=== PATIENT | female | born 1980 | race Caucasian/White ===

== ENCOUNTER 2021-03-31 15:43 | Emergency (ER) | payer OTHER ==
[~2021-03-31 15:43] MED LIST: ALBUTEROL2.5 MG/3 M INH; BENTYL 20MG TAB20 MG PO; CEFUROXIME500 MG PO; CIPRO HC OTIC S10 ML EARLF; ESTRADIOL1 EAC1 TD; FLAGYL500 MG PO; FLOMAX0.4 MG PO; GLUCOPHAGE500 MG PO; HYDROCODON-ACE1 EAC4 PO; IBUPROFEN600 MG PO; INDOCIN 50 MG C50 MG PO; KEFLEX CAP 500500 MG PO; KLOR-CON 1010 MEQ PO; LASIX20 MG PO; LIPITOR TAB 1010 MG PO; LIPITOR TAB 2020 MG PO; LORTAB 10-3251 EACH PO; MEDROL DOSEPAK 24 MG PO; NEURONTIN 400400 MG PO; NICOTINE PATCH1 EAC1 TOP; NORCO 5-325 TA1 EACH PO; NORCO 7.5-3251 EACH PO; OMNICEF 300 MG300 MG PO; PERCOCET 5-3251 EACH PO; PERCOCET 5/325 T1 EA PO; PREDNISONE20 MG PO; PROTONIX40 MG PO; TORADOL 10 MG T10 MG PO; VALIUM 5 MG TAB5 MG PO; VENTOLIN HFA 66.7 GM INH; ZANAFLEX4 MG PO; ZOFRAN ODT 4 MG4 MG PO; ZOFRAN4 MG PO
[2021-03-31 16:31] LABS: HEMOGLOBIN 13.8 gm/dl (12.3-15.3); RED BLOOD COUNT 3.8 M/UL (4.00-5.10); WHITE BLOOD COUNT 6.1 K/UL (4.5-11.0)
[2021-03-31 16:53] LABS: BUN/CREATININE RATIO 26 (0-10)
[2021-03-31] MEDS ORDERED: KEPPRA1000 MG PO (17:25)
[2021-03-31] MEDS ORDERED: VIBRAMYCIN 100100 MG PO (17:25)
== END 2021-03-31 17:25 | disposition home or self-care (01) ==
LOC: ER1 15:43
PROVIDERS: Emergency Medicine
DX: G40.909 Epilepsy, unspecified, not intractable, without status epilepticus (principal); J18.9 Pneumonia, unspecified organism; E11.9 Type 2 diabetes mellitus without complications; F17.200 Nicotine dependence, unspecified, uncomplicated
CPT/HCPCS: 71045; 80053; 83605; 85025; 93005; 96374; 99284; J1953

== ENCOUNTER 2021-04-21 17:58 | Emergency (ER) | payer OTHER ==
[~2021-04-21 17:58] MED LIST changes: +KEPPRA1000 MG PO; -NEURONTIN 400400 MG PO; +VIBRAMYCIN 100100 MG PO; -ZANAFLEX4 MG PO
[2021-04-21 18:38] LABS: HEMOGLOBIN 15.1 gm/dl (12.3-15.3); RED BLOOD COUNT 4.22 M/UL (4.00-5.10); WHITE BLOOD COUNT 10.6 K/UL (4.5-11.0)
[2021-04-21 18:56] LABS: BUN/CREATININE RATIO 11 (0-10)
[2021-04-21] MEDS ORDERED: SPIRONOLACTONE50 MG PO (23:14)
[2021-05-19] MEDS ORDERED: SPIRONOLACTONE50 MG PO (09:43)
[2021-06-26] MEDS ORDERED: GABAPENTIN800 MG PO (05:36)
[2021-06-26] MEDS ORDERED: ZANAFLEX4 MG PO (05:36)
[2021-06-26] MEDS ORDERED: FUROSEMIDE40 MG PO (09:59)
[2021-06-26] MEDS ORDERED: HYDROCODON-ACE1 EAC4 PO (10:00)
[2021-06-26] MEDS ORDERED: LEVETIRACETAM1000 MG PO (12:24)
[2021-06-26] MEDS ORDERED: PROVENTIL HFA6.7 GM INH (12:27)
== END 2021-04-21 23:25 | disposition home or self-care (01) ==
LOC: ER1 17:58
PROVIDERS: Emergency Medicine; Family Medicine
DX: G40.909 Epilepsy, unspecified, not intractable, without status epilepticus (principal); K74.60 Unspecified cirrhosis of liver; E87.6 Hypokalemia; Z20.822 Contact with and (suspected) exposure to COVID-19; R21 Rash and other nonspecific skin eruption; E11.9 Type 2 diabetes mellitus without complications; F17.200 Nicotine dependence, unspecified, uncomplicated; C64.9 Malignant neoplasm of unspecified kidney, except renal pelvis
CPT/HCPCS: 36600; 71045; 80053; 80307; 81001; 82550; 82553; 82803; 82962; 83605; 83874; 83880; 84484; 84703; 85025; 87040; 93005; 96365; 96375; 99285; J2060; J2270; J2405; J2543; J7030; Q9967; U0002

== ENCOUNTER 2021-05-03 13:07 | Emergency (ER) | payer OTHER ==
[~2021-05-03 13:07] MED LIST changes: +SPIRONOLACTONE50 MG PO
[2021-05-03 13:50] LABS: HEMOGLOBIN 13.5 gm/dl (12.3-15.3); RED BLOOD COUNT 3.68 M/UL (4.00-5.10); WHITE BLOOD COUNT 8.8 K/UL (4.5-11.0)
[2021-05-03 15:58] LABS: BUN/CREATININE RATIO 10 (0-10)
[2021-05-03 16:47] LABS: BODY FLUID SOURCE ASCITES
[2021-05-03 16:48] LABS: MONONUCLEAR CELLS 94 (75-100); POLYMORPHONUCLEAR % 6 (0-25); RBC (AUTOMATED) 1800 (0-100000); WBC (AUTOMATED) 544 (0-500)
[2021-05-19] MEDS ORDERED: SPIRONOLACTONE50 MG PO (09:43)
[2021-06-26] MEDS ORDERED: ZANAFLEX4 MG PO (05:36)
[2021-06-26] MEDS ORDERED: GABAPENTIN800 MG PO (05:36)
[2021-06-26] MEDS ORDERED: FUROSEMIDE40 MG PO (09:59)
[2021-06-26] MEDS ORDERED: HYDROCODON-ACE1 EAC4 PO (10:00)
[2021-06-26] MEDS ORDERED: LEVETIRACETAM1000 MG PO (12:24)
[2021-06-26] MEDS ORDERED: PROVENTIL HFA6.7 GM INH (12:27)
== END 2021-05-03 17:30 | disposition home or self-care (01) ==
LOC: ER1 13:07
PROVIDERS: Physician Assistant
DX: R18.8 Other ascites (principal); E11.9 Type 2 diabetes mellitus without complications; N18.9 Chronic kidney disease, unspecified; F17.210 Nicotine dependence, cigarettes, uncomplicated
CPT/HCPCS: 70450; 71045; 80053; 80185; 81001; 82550; 82553; 83874; 84484; 85025; 85610; 87070; 87086; 87205; 89051; 96374; 96375; 99284; G0480; J1170; J2270; J2405

== ENCOUNTER → 2021-05-04 | Outpatient (CLI) | payer OTHER ==
[~2021-05-04] VITALS: Ht 180.3 cm; Wt 104.3 kg
[~2021-05-04] MED LIST changes: +FUROSEMIDE40 MG PO; +GABAPENTIN800 MG PO; +LEVETIRACETAM1000 MG PO; +PROVENTIL HFA6.7 GM INH; +ZANAFLEX4 MG PO
[2021-05-05 05:08] LABS: HBSAG SCREEN Negative (Negative); HEP B CORE AB, TOT Negative (Negative); HEP C VIRUS AB 7.9 (0.0-0.9)
[2021-05-05 08:13] LABS: ALPHA-1-ANTITRYPSIN, SERUM 204 mg/dL (101-187)
[2021-05-05 15:11] LABS: MITOCHONDRIAL (M2) ANTIBODY <20.0 Units (0.0-20.0)
== END ==
LOC: OPSV 09:45
PROVIDERS: Internal Medicine Gastroenterology
DX: K74.60 Unspecified cirrhosis of liver (principal); R18.8 Other ascites
CPT/HCPCS: 36415; 82103; 82728; 83540; 83550; 85610; 86038; 86704; 86706; 86708; 86803; 87340; 96365; P9047

== ENCOUNTER 2021-05-07 05:29 | Emergency (ER) | payer OTHER ==
[~2021-05-07 05:29] MED LIST changes: -FUROSEMIDE40 MG PO; -GABAPENTIN800 MG PO; -LEVETIRACETAM1000 MG PO; -PROVENTIL HFA6.7 GM INH; -ZANAFLEX4 MG PO
[2021-05-07 06:05] LABS: HEMOGLOBIN 13.6 gm/dl (12.3-15.3); RED BLOOD COUNT 3.8 M/UL (4.00-5.10); WHITE BLOOD COUNT 7.9 K/UL (4.5-11.0)
[2021-05-07 06:28] LABS: BUN/CREATININE RATIO 14 (0-10)
[2021-05-07] MEDS ORDERED: HYDROCODON-ACE1 EAC4 PO (08:51)
[2021-05-19] MEDS ORDERED: SPIRONOLACTONE50 MG PO (09:43)
[2021-06-26] MEDS ORDERED: GABAPENTIN800 MG PO (05:36)
[2021-06-26] MEDS ORDERED: ZANAFLEX4 MG PO (05:36)
[2021-06-26] MEDS ORDERED: FUROSEMIDE40 MG PO (09:59)
[2021-06-26] MEDS ORDERED: HYDROCODON-ACE1 EAC4 PO (10:00)
[2021-06-26] MEDS ORDERED: LEVETIRACETAM1000 MG PO (12:24)
[2021-06-26] MEDS ORDERED: PROVENTIL HFA6.7 GM INH (12:27)
== END 2021-05-07 09:30 | disposition home or self-care (01) ==
LOC: ER1 05:29
PROVIDERS: Emergency Medicine
DX: G89.18 Other acute postprocedural pain (principal); R10.9 Unspecified abdominal pain; R10.817 Generalized abdominal tenderness; E11.9 Type 2 diabetes mellitus without complications; F17.200 Nicotine dependence, unspecified, uncomplicated; Z90.410 Acquired total absence of pancreas
CPT/HCPCS: 80053; 84702; 85025; 85652; 86140; 87040; 96374; 96375; 96376; 99284; J0696; J1170; J2270; J2405; J3370; J7070; Q9967

== ENCOUNTER → 2021-05-08 | Outpatient (CLI) | payer OTHER ==
[~2021-05-08] MED LIST changes: +FUROSEMIDE40 MG PO; +GABAPENTIN800 MG PO; +LEVETIRACETAM1000 MG PO; +PROVENTIL HFA6.7 GM INH; +ZANAFLEX4 MG PO
== END ==
LOC: LAB 11:39
PROVIDERS: Internal Medicine Gastroenterology
DX: K75.81 Nonalcoholic steatohepatitis (NASH) (principal); R94.5 Abnormal results of liver function studies
CPT/HCPCS: 36415; 81256

== ENCOUNTER → 2021-05-13 | Outpatient (CLI) | payer OTHER ==
[~2021-05-13] VITALS: Ht 180.3 cm; Wt 104.3 kg
[2021-05-13 11:28] LABS: BUN/CREATININE RATIO 8 (0-10)
[2021-05-14 15:10] LABS: LIVER-KIDNEY MICROSOMAL AB 1.4 Units (0.0-20.0)
[2021-05-14 20:12] LABS: HEPATITIS C QUANTITATION HCV Not Detected IU/mL (.)
== END ==
LOC: OPSV 10:00
PROVIDERS: Internal Medicine Gastroenterology
DX: K75.81 Nonalcoholic steatohepatitis (NASH) (principal); K74.60 Unspecified cirrhosis of liver
CPT/HCPCS: 36415; 80048; 82784; 83516; 86376; 87521; 87522

== ENCOUNTER → 2021-05-19 | Day surgery (SDC) | payer OTHER ==
[2021-05-19 10:08] LABS: BUN/CREATININE RATIO 12 (0-10)
== END | disposition home or self-care (01) ==
LOC: OR 06:50
PROVIDERS: Internal Medicine Gastroenterology
DX: K76.6 Portal hypertension (principal); K31.89 Other diseases of stomach and duodenum; K75.81 Nonalcoholic steatohepatitis (NASH); K74.60 Unspecified cirrhosis of liver; E11.9 Type 2 diabetes mellitus without complications; Z79.84 Long term (current) use of oral hypoglycemic drugs; E66.8 Other obesity; K52.9 Noninfective gastroenteritis and colitis, unspecified; B18.1 Chronic viral hepatitis B without delta-agent; Z68.32 Body mass index [BMI] 32.0-32.9, adult; Z20.822 Contact with and (suspected) exposure to COVID-19; K21.9 Gastro-esophageal reflux disease without esophagitis; F17.210 Nicotine dependence, cigarettes, uncomplicated
CPT/HCPCS: 36415; 80048; 82962; G0480; J2704; J7040

== ENCOUNTER 2021-06-18 17:56 | Emergency (ER) | payer OTHER ==
[~2021-06-18 17:56] MED LIST changes: -FUROSEMIDE40 MG PO; -GABAPENTIN800 MG PO; -LEVETIRACETAM1000 MG PO; +NEURONTIN 100100 MG PO; -PROVENTIL HFA6.7 GM INH
== END 2021-06-18 19:14 | disposition left against medical advice (07) ==
LOC: ER1 17:56
DX: Z53.21 Procedure and treatment not carried out due to patient leaving prior to being seen by health care provider (principal)

== ENCOUNTER 2021-06-19 08:21 | Emergency (ER) | payer OTHER ==
[2021-06-19 08:52] LABS: HEMOGLOBIN 13.6 gm/dl (12.3-15.3); RED BLOOD COUNT 3.68 M/UL (4.00-5.10); WHITE BLOOD COUNT 6.6 K/UL (4.5-11.0)
[2021-06-19 09:33] LABS: BUN/CREATININE RATIO 23 (0-10)
== END 2021-06-19 13:22 | disposition home or self-care (01) ==
LOC: ER1 08:21
PROVIDERS: Emergency Medicine
DX: G40.909 Epilepsy, unspecified, not intractable, without status epilepticus (principal); K74.60 Unspecified cirrhosis of liver; F17.210 Nicotine dependence, cigarettes, uncomplicated; E11.9 Type 2 diabetes mellitus without complications; Z85.528 Personal history of other malignant neoplasm of kidney
CPT/HCPCS: 70450; 71045; 80053; 83605; 83690; 83880; 85025; 93005; 96374; 96375; 99285; G0480; J1885; J2270; J2405; Q9967

== ENCOUNTER 2021-08-04 15:13 | Emergency (ER) | payer OTHER ==
[~2021-08-04 15:13] MED LIST changes: +FUROSEMIDE40 MG PO; +GABAPENTIN800 MG PO; +LEVETIRACETAM1000 MG PO; -NEURONTIN 100100 MG PO; +PROVENTIL HFA6.7 GM INH
[2021-08-04 16:36] LABS: RED BLOOD COUNT 2.31 M/UL (4.00-5.10); WHITE BLOOD COUNT 10.6 K/UL (4.5-11.0)
[2021-08-04 20:31] LABS: BODY FLUID SOURCE PERITONEAL
[2021-08-04 20:32] LABS: MONONUCLEAR CELLS 69.5 (75-100); POLYMORPHONUCLEAR % 30.5 (0-25); RBC (AUTOMATED) 2900 (0-100000); WBC (AUTOMATED) 210 (0-500)
[2021-08-04 20:40] LABS: LDH, BODY FLUID 44 U/L
[2021-08-04] MEDS ORDERED: OMNICEF 300 MG300 MG PO (22:18)
[2021-08-04] MEDS ORDERED: OXYCODONE HCL10 MG PO (22:24)
== END 2021-08-04 23:09 | disposition home or self-care (01) ==
LOC: ER1 15:13
PROVIDERS: Physician Assistant; Student in an Organized Health Care Education/Training Program
DX: K72.10 Chronic hepatic failure without coma (principal); R18.8 Other ascites; E11.9 Type 2 diabetes mellitus without complications; Z88.1 Allergy status to other antibiotic agents
CPT/HCPCS: 73630; 80053; 82550; 82553; 83605; 83615; 83874; 84484; 85025; 85610; 87040; 87070; 87205; 89051; 96374; 96375; 96376; 99284; J0696; J1170

== ENCOUNTER 2021-08-07 08:35 | Emergency (ER) | payer OTHER ==
[~2021-08-07 08:35] MED LIST changes: +OXYCODONE HCL10 MG PO
[2021-08-07 09:25] LABS: HEMOGLOBIN 7.4 gm/dl (12.3-15.3); WHITE BLOOD COUNT 9.8 K/UL (4.5-11.0)
[2021-08-07 09:31] LABS: RED BLOOD COUNT 2.04 M/UL (4.00-5.10)
== END 2021-08-07 11:08 | disposition left against medical advice (07) ==
LOC: ER1 08:35 → CDU 10:46 → ER1 11:08
PROVIDERS: Emergency Medicine
DX: R07.9 Chest pain, unspecified (principal); D64.9 Anemia, unspecified; K74.60 Unspecified cirrhosis of liver; I95.9 Hypotension, unspecified; E87.2 Acidosis; N17.9 Acute kidney failure, unspecified; E87.1 Hypo-osmolality and hyponatremia; Z90.710 Acquired absence of both cervix and uterus; Z20.822 Contact with and (suspected) exposure to COVID-19
CPT/HCPCS: 71045; 80053; 82550; 82553; 83605; 83874; 84484; 85025; 85610; 87040; 96374; 96375; 96376; 99285; J0696; J2270; J2405; U0002

== ENCOUNTER 2021-09-11 15:40 | Emergency (ER) | payer OTHER ==
[2021-09-12] MEDS ORDERED: CEFUROXIME500 MG PO (16:30)
[2021-09-12] MEDS ORDERED: ONDANSETRON ODT4 MG SL (16:30)
== END 2021-09-11 15:55 | disposition left against medical advice (07) ==
LOC: ER1 15:40
DX: Z53.21 Procedure and treatment not carried out due to patient leaving prior to being seen by health care provider (principal)
CPT/HCPCS: C1729

== ENCOUNTER 2021-09-16 09:35 | Emergency (ER) | payer OTHER ==
[~2021-09-16 09:35] MED LIST changes: +ONDANSETRON ODT4 MG SL
[2021-09-16 10:50] LABS: HEMOGLOBIN 8.5 gm/dl (12.3-15.3); RED BLOOD COUNT 2.5 M/UL (4.00-5.10); WHITE BLOOD COUNT 7.6 K/UL (4.5-11.0)
[2021-09-16 11:15] LABS: BUN/CREATININE RATIO 12 (0-10)
[2021-09-16 15:18] LABS: BODY FLUID SOURCE ASCITES; MONONUCLEAR CELLS 84.1 (75-100); POLYMORPHONUCLEAR % 15.9 (0-25); RBC (AUTOMATED) 300 (0-100000); WBC (AUTOMATED) 126 (0-500)
[2021-09-16 17:10] LABS: LDH, BODY FLUID 46 U/L; TOTAL PROTEIN, BODY FLUID 1.2 gm/dL
== END 2021-09-16 15:16 | disposition home or self-care (01) ==
LOC: ER1 09:35
PROVIDERS: Nurse Practitioner
DX: R18.8 Other ascites (principal); R06.02 Shortness of breath; E11.9 Type 2 diabetes mellitus without complications; Z90.49 Acquired absence of other specified parts of digestive tract
CPT/HCPCS: 71045; 80053; 82140; 82550; 82553; 82945; 83605; 83615; 83690; 83874; 83880; 84157; 84484; 85025; 85610; 85730; 87205; 89051; 93005; 96374; 96375; 96376; 99285; J1170; J2270; J2405; P9047

== ENCOUNTER 2021-09-22 12:34 | Emergency (ER) | payer OTHER ==
[2021-09-22 13:45] LABS: HEMOGLOBIN 10.1 gm/dl (12.3-15.3); RED BLOOD COUNT 2.96 M/UL (4.00-5.10)
[2021-09-22] MEDS ORDERED: HYDROCODONE-AC1 EACH PO (15:58)
== END 2021-09-22 16:15 | disposition home or self-care (01) ==
LOC: ER1 12:34
PROVIDERS: Emergency Medicine
PROC: 0W9G3ZZ Drainage of Peritoneal Cavity, Percutaneous Approach (ICD-10-PCS; principal; 2021-09-22)
DX: R18.8 Other ascites (principal); K76.89 Other specified diseases of liver; E11.9 Type 2 diabetes mellitus without complications; F17.210 Nicotine dependence, cigarettes, uncomplicated; Z88.5 Allergy status to narcotic agent; Z90.49 Acquired absence of other specified parts of digestive tract
CPT/HCPCS: 80053; 82962; 83690; 85025; 85610; 85730; 96374; 96375; 96376; 99284; J2270; J2405

== ENCOUNTER 2021-09-28 06:24 | Emergency (ER) | payer OTHER ==
[~2021-09-28 06:24] MED LIST changes: +HYDROCODONE-AC1 EACH PO
[2021-09-28 06:59] LABS: HEMOGLOBIN 10.4 gm/dl (12.3-15.3); RED BLOOD COUNT 3.04 M/UL (4.00-5.10); WHITE BLOOD COUNT 7.8 K/UL (4.5-11.0)
[2021-09-28 07:19] LABS: BUN/CREATININE RATIO 19 (0-10)
== END 2021-09-28 12:20 | disposition home or self-care (01) ==
LOC: ER1 06:24
PROVIDERS: Physician Assistant
PROC: 0W9G3ZZ Drainage of Peritoneal Cavity, Percutaneous Approach (ICD-10-PCS; principal; 2021-09-28)
DX: K74.60 Unspecified cirrhosis of liver (principal); R18.8 Other ascites; E11.9 Type 2 diabetes mellitus without complications; F17.200 Nicotine dependence, unspecified, uncomplicated; Z88.5 Allergy status to narcotic agent; Z90.49 Acquired absence of other specified parts of digestive tract
CPT/HCPCS: 71045; 80053; 80307; 83880; 85025; 85610; 85730; 93005; 96374; 96375; 96376; 99284; C1729; G0480; J1170; J2405; P9047

== ENCOUNTER 2021-10-02 06:01 | Inpatient (IN) | payer OTHER ==
[~2021-10-02] VITALS: Ht 180.3 cm; Wt 122.9 kg
[2021-10-02 06:42] LABS: HEMOGLOBIN 9.6 gm/dl (12.3-15.3); RED BLOOD COUNT 2.79 M/UL (4.00-5.10); WHITE BLOOD COUNT 15.9 K/UL (4.5-11.0)
[2021-10-02 07:17] LABS: BUN/CREATININE RATIO 19 (0-10)
[2021-10-02] MEDS ORDERED: XIFAXAN550 MG PO (10:59)
[2021-10-02] MEDS ORDERED: LEVOCARNITINE330 MG PO (11:00)
[2021-10-02] MEDS ORDERED: LACTULOSE10 GM/15 M PO (11:00)
[2021-10-02] MEDS ORDERED: BUMETANIDE2 MG PO (11:01)
[2021-10-02] MEDS ORDERED: MISOPROSTOL100 MCG PO (11:01)
[2021-10-02] MEDS ORDERED: MIDODRINE HCL10 MG PO (11:01)
[2021-10-02] MEDS ORDERED: ZINC-22050 MG PO (11:02)
[2021-10-02] MEDS ORDERED: SPIRONOLACTONE25 MG PO (11:02)
[2021-10-03 06:22] LABS: HEMOGLOBIN 9.4 gm/dl (12.3-15.3); RED BLOOD COUNT 2.77 M/UL (4.00-5.10); WHITE BLOOD COUNT 13.3 K/UL (4.5-11.0)
== END 2021-10-03 20:58 | disposition short-term general hospital (02) | DRG 871 ==
LOC: ER1 06:01 → CDU 08:20 → PROG CARE 21:50
PROVIDERS: Emergency Medicine; Physician Assistant; ADMIT Internal Medicine
PROC: 3E033XZ Introduction of Vasopressor into Peripheral Vein, Percutaneous Approach (ICD-10-PCS; principal; 2021-10-02)
DX: A41.9 Sepsis, unspecified organism (principal); R65.21 Severe sepsis with septic shock; Z20.822 Contact with and (suspected) exposure to COVID-19; K65.2 Spontaneous bacterial peritonitis; J96.01 Acute respiratory failure with hypoxia; R18.8 Other ascites; N17.9 Acute kidney failure, unspecified; C64.2 Malignant neoplasm of left kidney, except renal pelvis; K76.6 Portal hypertension; E87.2 Acidosis; E87.1 Hypo-osmolality and hyponatremia; K74.60 Unspecified cirrhosis of liver; E86.1 Hypovolemia; K75.81 Nonalcoholic steatohepatitis (NASH); D50.9 Iron deficiency anemia, unspecified; K72.90 Hepatic failure, unspecified without coma; I95.9 Hypotension, unspecified; G40.909 Epilepsy, unspecified, not intractable, without status epilepticus; E11.9 Type 2 diabetes mellitus without complications; F17.210 Nicotine dependence, cigarettes, uncomplicated; F10.10 Alcohol abuse, uncomplicated; D64.9 Anemia, unspecified; Z90.5 Acquired absence of kidney; Z90.710 Acquired absence of both cervix and uterus; Z88.8 Allergy status to other drugs, medicaments and biological substances; Z83.3 Family history of diabetes mellitus; Z80.9 Family history of malignant neoplasm, unspecified; Z85.528 Personal history of other malignant neoplasm of kidney; Z79.4 Long term (current) use of insulin
CPT/HCPCS: 36415; 71045; 80053; 80202; 80307; 82140; 82550; 82553; 82962; 83605; 83690; 83735; 83874; 83880; 84100; 84484; 85025; 85610; 85730; 87040; 93005; 94760; 96374; 96375; 99285; G0480; J0692; J0696; J1940; J2270; J3370; J7030; J7070; P9047; U0002

== ENCOUNTER 2021-10-11 12:17 | Emergency (ER) | payer OTHER ==
[~2021-10-11 12:17] MED LIST changes: +BUMETANIDE2 MG PO; +LACTULOSE10 GM/15 M PO; +LEVOCARNITINE330 MG PO; +MIDODRINE HCL10 MG PO; +MISOPROSTOL100 MCG PO; +SPIRONOLACTONE25 MG PO; +XIFAXAN550 MG PO; +ZINC-22050 MG PO
== END 2021-10-11 15:00 | disposition home or self-care (01) ==
LOC: ER1 12:17
DX: R13.10 Dysphagia, unspecified (principal); E11.9 Type 2 diabetes mellitus without complications; Z85.528 Personal history of other malignant neoplasm of kidney; Z86.69 Personal history of other diseases of the nervous system and sense organs; Z87.19 Personal history of other diseases of the digestive system
CPT/HCPCS: 99283

== ENCOUNTER 2021-10-12 09:06 | Emergency (ER) | payer OTHER ==
[2021-10-12 12:33] LABS: RED BLOOD COUNT 2.92 M/UL (4.00-5.10)
== END 2021-10-12 15:40 | disposition home or self-care (01) ==
LOC: ER1 09:06
PROVIDERS: Physician Assistant
PROC: 0W9G3ZZ Drainage of Peritoneal Cavity, Percutaneous Approach (ICD-10-PCS; principal; 2021-10-12)
DX: K74.60 Unspecified cirrhosis of liver (principal); R18.8 Other ascites; R13.10 Dysphagia, unspecified; E11.9 Type 2 diabetes mellitus without complications; F17.200 Nicotine dependence, unspecified, uncomplicated; Z88.5 Allergy status to narcotic agent; Z93.1 Gastrostomy status; Z90.49 Acquired absence of other specified parts of digestive tract
CPT/HCPCS: 74230; 80053; 85025; 85610; 85730; 92611-GN; 99284; J1170; P9047

== ENCOUNTER 2021-10-22 20:14 | Emergency (ER) | payer OTHER ==
[2021-10-22 20:46] LABS: HEMOGLOBIN 12.2 gm/dl (12.3-15.3); RED BLOOD COUNT 3.55 M/UL (4.00-5.10); WHITE BLOOD COUNT 9.6 K/UL (4.5-11.0)
[2021-10-22 21:10] LABS: BUN/CREATININE RATIO 10 (0-10)
== END 2021-10-23 00:40 | disposition home or self-care (01) ==
LOC: ER1 20:14
PROVIDERS: Emergency Medicine
DX: R56.9 Unspecified convulsions (principal); F10.120 Alcohol abuse with intoxication, uncomplicated; Z20.822 Contact with and (suspected) exposure to COVID-19
CPT/HCPCS: 70450; 80053; 80307; 81001; 82140; 82550; 82553; 83605; 83735; 84484; 85025; 87040; 93005; 96374; 96375; 99285; G0480; J1953; J2060; J3411; U0002

== ENCOUNTER 2021-10-24 15:08 | Emergency (ER) | payer OTHER ==
[2021-10-24 15:52] LABS: RED BLOOD COUNT 3.22 M/UL (4.00-5.10)
[2021-10-24 16:12] LABS: WHITE BLOOD COUNT 12.6 K/UL (4.5-11.0)
[2021-10-24 16:14] LABS: BUN/CREATININE RATIO 13 (0-10)
== END 2021-10-24 19:35 | disposition home or self-care (01) ==
LOC: ER1 15:08
PROVIDERS: Family Medicine
DX: R56.9 Unspecified convulsions (principal); K74.60 Unspecified cirrhosis of liver; Z20.822 Contact with and (suspected) exposure to COVID-19; F10.10 Alcohol abuse, uncomplicated; Y90.9 Presence of alcohol in blood, level not specified; Z79.899 Other long term (current) drug therapy
CPT/HCPCS: 71045; 80053; 80307; 81001; 82009; 82140; 82550; 82553; 82803; 83605; 83690; 83735; 83874; 84484; 85025; 85610; 87040; 93005; 99284; G0480; U0002

== ENCOUNTER 2022-02-25 11:09 | Emergency (ER) | payer OTHER ==
[2022-02-25 12:11] LABS: HEMOGLOBIN 11.5 gm/dl (12.3-15.3); RED BLOOD COUNT 3.36 M/UL (4.00-5.10); WHITE BLOOD COUNT 7.3 K/UL (4.5-11.0)
== END 2022-02-25 14:35 | disposition home or self-care (01) ==
LOC: ER1 11:09
PROVIDERS: Physician Assistant
DX: K72.90 Hepatic failure, unspecified without coma (principal); R18.8 Other ascites; E11.9 Type 2 diabetes mellitus without complications; Z88.1 Allergy status to other antibiotic agents; F17.210 Nicotine dependence, cigarettes, uncomplicated
CPT/HCPCS: 85025; 85610; 85730; 99284

== ENCOUNTER 2022-03-04 14:54 | Emergency (ER) | payer OTHER ==
[2022-03-04 16:52] LABS: RED BLOOD COUNT 3.51 M/UL (4.00-5.10); WHITE BLOOD COUNT 6.4 K/UL (4.5-11.0)
[2022-03-04 17:13] LABS: BUN/CREATININE RATIO 14 (0-10)
== END 2022-03-04 20:40 | disposition home or self-care (01) ==
LOC: ER1 14:54
PROVIDERS: Nurse Practitioner
DX: Z48.89 Encounter for other specified surgical aftercare (principal); E11.9 Type 2 diabetes mellitus without complications; F17.210 Nicotine dependence, cigarettes, uncomplicated; Z88.8 Allergy status to other drugs, medicaments and biological substances
CPT/HCPCS: 80053; 80076; 81001; 82962; 83605; 85025; 85610; 85730; 87040; 93005; 96374; 96375; 99284; J1170; J2405

== ENCOUNTER 2022-03-23 16:16 | Emergency (ER) | payer OTHER ==
[~2022-03-23 16:16] MED LIST changes: -LEVETIRACETAM1000 MG PO; +LEVETIRACETAM500 MG PO; -SPIRONOLACTONE25 MG PO
[2022-03-23 18:21] LABS: HEMOGLOBIN 12.8 gm/dl (12.3-15.3); RED BLOOD COUNT 3.79 M/UL (4.00-5.10)
[2022-03-23 18:56] LABS: BUN/CREATININE RATIO 17 (0-10)
[2022-03-24] MEDS ORDERED: POTASSIUM20 MEQ/15 PO (18:59)
[2022-03-24] MEDS ORDERED: ONDANSETRON ODT4 MG PO (19:00)
[2022-03-24] MEDS ORDERED: LIDOCAINE 5% TOP (19:01)
== END 2022-03-23 22:15 | disposition home or self-care (01) ==
LOC: ER1 16:16
PROVIDERS: Physician Assistant
DX: K72.90 Hepatic failure, unspecified without coma (principal); E11.9 Type 2 diabetes mellitus without complications; F17.210 Nicotine dependence, cigarettes, uncomplicated; Z85.53 Personal history of malignant neoplasm of renal pelvis; Z51.81 Encounter for therapeutic drug level monitoring; Z88.6 Allergy status to analgesic agent; Z88.1 Allergy status to other antibiotic agents; Z88.5 Allergy status to narcotic agent
CPT/HCPCS: 80053; 83690; 85025; 85610; 96374; 99284; J1170

== ENCOUNTER 2022-04-10 11:58 | Emergency (ER) | payer OTHER ==
[~2022-04-10 11:58] MED LIST changes: +LIDOCAINE 5% TOP; +ONDANSETRON ODT4 MG PO; +POTASSIUM20 MEQ/15 PO
[2022-04-10 12:47] LABS: HEMOGLOBIN 12.9 gm/dl (12.3-15.3); RED BLOOD COUNT 3.66 M/UL (4.00-5.10); WHITE BLOOD COUNT 7.8 K/UL (4.5-11.0)
[2022-04-10 13:14] LABS: BUN/CREATININE RATIO 9 (0-10)
== END 2022-04-10 15:40 | disposition left against medical advice (07) ==
LOC: ER1 11:58
DX: K74.60 Unspecified cirrhosis of liver (principal); R18.8 Other ascites; R60.0 Localized edema; E11.9 Type 2 diabetes mellitus without complications; F17.210 Nicotine dependence, cigarettes, uncomplicated; Z90.710 Acquired absence of both cervix and uterus; Z90.5 Acquired absence of kidney; Z85.53 Personal history of malignant neoplasm of renal pelvis; Z88.8 Allergy status to other drugs, medicaments and biological substances; Z51.81 Encounter for therapeutic drug level monitoring
CPT/HCPCS: 80053; 83690; 85025; 85610; 85730; 93005; 99284; J1170; J2405

== ENCOUNTER 2022-04-11 18:45 | Emergency (ER) | payer OTHER ==
[2022-04-11 19:04] LABS: HEMOGLOBIN 11.5 gm/dl (12.3-15.3); RED BLOOD COUNT 3.3 M/UL (4.00-5.10); WHITE BLOOD COUNT 8.7 K/UL (4.5-11.0)
[2022-04-11 19:32] LABS: BUN/CREATININE RATIO 9 (0-10)
== END 2022-04-12 03:22 | disposition other institution (70) ==
LOC: ER1 18:45
PROVIDERS: Student in an Organized Health Care Education/Training Program
DX: K74.60 Unspecified cirrhosis of liver (principal); K75.81 Nonalcoholic steatohepatitis (NASH); R18.8 Other ascites; F17.210 Nicotine dependence, cigarettes, uncomplicated; Z88.5 Allergy status to narcotic agent; Z88.6 Allergy status to analgesic agent
CPT/HCPCS: 80053; 82150; 83690; 85025; 85610; 85730; 96374; 96376; 99285; C1729; J1170

== ENCOUNTER 2022-04-17 09:10 | Emergency (ER) | payer OTHER ==
[2022-04-17 10:09] LABS: RED BLOOD COUNT 2.33 M/UL (4.00-5.10); WHITE BLOOD COUNT 5.8 K/UL (4.5-11.0)
[2022-04-17 10:33] LABS: HEMOGLOBIN 8.4 gm/dl (12.3-15.3)
== END 2022-04-17 12:40 | disposition left against medical advice (07) ==
LOC: ER1 09:10
PROVIDERS: Physician Assistant
DX: K70.31 Alcoholic cirrhosis of liver with ascites (principal); E11.9 Type 2 diabetes mellitus without complications; J44.9 Chronic obstructive pulmonary disease, unspecified; F17.210 Nicotine dependence, cigarettes, uncomplicated; Z90.89 Acquired absence of other organs; Z90.49 Acquired absence of other specified parts of digestive tract; Z90.710 Acquired absence of both cervix and uterus; Z88.1 Allergy status to other antibiotic agents; Z88.5 Allergy status to narcotic agent; Z88.0 Allergy status to penicillin
CPT/HCPCS: 80053; 82150; 82550; 82553; 83690; 84484; 85025; 93005; 99283

== ENCOUNTER 2022-04-22 04:25 | Emergency (ER) | payer OTHER ==
[2022-04-22 05:39] LABS: RED BLOOD COUNT 2.97 M/UL (4.00-5.10); WHITE BLOOD COUNT 9.3 K/UL (4.5-11.0)
[2022-04-22 05:44] LABS: HEMOGLOBIN 10.4 gm/dl (12.3-15.3)
[2022-04-22 11:28] LABS: BODY FLUID SOURCE ASCITES
[2022-04-22 11:29] LABS: MONONUCLEAR CELLS 82.6 (75-100); POLYMORPHONUCLEAR % 17.4 (0-25); RBC (AUTOMATED) 100 (0-100000); WBC (AUTOMATED) 92 (0-500)
[2022-04-22 16:56] LABS: TOTAL PROTEIN, BODY FLUID 0.4 gm/dL
[2022-04-22 16:57] LABS: AMYLASE, BODY FLUID 2 U/L
== END 2022-04-22 13:15 | disposition home or self-care (01) ==
LOC: ER1 04:25
PROVIDERS: Family Medicine; Physician Assistant
PROC: 0W9G3ZZ Drainage of Peritoneal Cavity, Percutaneous Approach (ICD-10-PCS; principal; 2022-04-22)
DX: K74.60 Unspecified cirrhosis of liver (principal); R18.8 Other ascites; E11.9 Type 2 diabetes mellitus without complications; F17.210 Nicotine dependence, cigarettes, uncomplicated; Z88.1 Allergy status to other antibiotic agents; Z88.5 Allergy status to narcotic agent
CPT/HCPCS: 71045; 80053; 82140; 82150; 82945; 83605; 83690; 84157; 85025; 85610; 87040; 87205; 89051; 96374; 99284; C1729; G0480; J1170; P9047

== ENCOUNTER 2022-04-25 09:20 | Emergency (ER) | payer OTHER ==
[2022-04-25 11:08] LABS: RED BLOOD COUNT 3.38 M/UL (4.00-5.10); WHITE BLOOD COUNT 7.2 K/UL (4.5-11.0)
== END 2022-04-25 16:00 | disposition left against medical advice (07) ==
LOC: ER1 09:20
PROVIDERS: Family Medicine
DX: K72.90 Hepatic failure, unspecified without coma (principal); R18.8 Other ascites; Z51.81 Encounter for therapeutic drug level monitoring
CPT/HCPCS: 80053; 83605; 83690; 85025; 85610; 85652; 86140; 99283; C1729

== ENCOUNTER 2022-04-27 12:43 | Emergency (ER) | payer OTHER | END 2022-04-27 13:30 | disposition left against medical advice (07) | LOC: ER1 12:43 | DX: Z53.21 Procedure and treatment not carried out due to patient leaving prior to being seen by health care provider (principal) ==

== ENCOUNTER 2022-05-12 12:59 | Inpatient (IN) | payer OTHER ==
[~2022-05-12] VITALS: Ht 177.8 cm; Wt 79.4 kg
[~2022-05-12 12:59] MED LIST changes: +BUMETANIDE1 MG PO; -BUMETANIDE2 MG PO
[2022-05-12 14:27] LABS: HEMOGLOBIN 9.1 gm/dl (12.3-15.3); RED BLOOD COUNT 2.56 M/UL (4.00-5.10); WHITE BLOOD COUNT 3.3 K/UL (4.5-11.0)
[2022-05-12 14:44] LABS: BUN/CREATININE RATIO 13 (0-10)
[2022-05-12 15:48] LABS: BODY FLUID SOURCE PERITONEAL; MONONUCLEAR CELLS 87.5 (75-100); POLYMORPHONUCLEAR % 12.5 (0-25); RBC (AUTOMATED) 400 (0-100000); WBC (AUTOMATED) 112 (0-500)
[2022-05-13 02:04] LABS: HEMOGLOBIN 9.7 gm/dl (12.3-15.3); RED BLOOD COUNT 2.79 M/UL (4.00-5.10)
[2022-05-13 02:23] LABS: BUN/CREATININE RATIO 13 (0-10)
[2022-05-13] MEDS ORDERED: NICOTINE PATCH1 EAC2 TD (09:50)
[2022-05-13] MEDS ORDERED: IPRAT-ALBUT 0.5-3 ML INH (09:50)
[2022-05-13] MEDS ORDERED: SENNOSIDES-DOC1 EACH PO (09:51)
[2022-05-13] MEDS ORDERED: PROMETHAZINE12.5 M1 PO (09:51)
--- NOTE | 2022-05-13 19:03 | NUR ---
1315 - PT STATES SHE IS UNABLE TO VOID. PT UP TO BATHROOM MULTIPLE TIMES. NOTIFIED WITH ORDER FOR CATH OBTAINED. EXPLAINED TO PT THAT MD ORDERED ROSE CATH. PT REFUSED CATH AT THIS TIME. STATES SHE HAS URINATED "A LOT". 1430 - PT NOW COMPLAINING OF NEEDING TO HAVE BM. EXPLAINED TO PT THAT SHE WAS RECEIVING LACTULOSE. STATES HER BOWELS HAVEN'T MOVED IN SEVERAL DAYS. NOTIFIED PER PT REQUEST. STATES NO ENEMAS (PT REQUEST) AT THIS TIME. PT IS ON LACTULOSE AND WILL NOT NEED ANYTHING ELSE AT THIS TIME. 1600 - SPOKE WITH GI AT [facility]: PLAN OF CARE. SHE SPOKE WITH DR CASTILLO IN ER THAT PERFORMED PARACENTISIS IN ER 05/12/22. HE AGREES TO COME TO FLOOR WHEN ABLE TO REPEAT PROCEDURE R/T LARGE FLUID VOLUME. 1745 - DR CASTILLO ON FLOOR TO PERFORM PARACENTIS. AREA NUMBED WITH LIDOCAINE WITH EPI. 1830 - PARACENTSIS COMPLETE. APPROXIMATELY 6.5 LITERS REMOVED. PT TOLERATED PROCEDURE WELL. DRAIN REMOVED AND PRESSURE DRESSING APPLIED. 1845 - PT UP IN BATHROOM WITHOUT ASSIST. FAMILY MEMBER IN ROOM. CALLED TO ROOM BY EMERGENCY LIGHT. PT FOUND SITTING IN FLOOR. STATES SHE LOST HER BALANCE WHEN TRYING TO PULL UP HER PANTS. NO PHYSICAL DEFORMITIES NOTED. NOTIFIED WITH NEW ORDERS NOTED.
[2022-05-14 01:48] LABS: HEMOGLOBIN 8.3 gm/dl (12.3-15.3); WHITE BLOOD COUNT 8.9 K/UL (4.5-11.0)
[2022-05-14 01:54] LABS: RED BLOOD COUNT 2.38 M/UL (4.00-5.10)
[2022-05-14 02:29] LABS: BUN/CREATININE RATIO 11 (0-10)
[2022-05-15 02:04] LABS: HEMOGLOBIN 8.6 gm/dl (12.3-15.3); RED BLOOD COUNT 2.42 M/UL (4.00-5.10)
[2022-05-15 02:10] LABS: WHITE BLOOD COUNT 6.1 K/UL (4.5-11.0)
[2022-05-15 02:32] LABS: BUN/CREATININE RATIO 14 (0-10)
--- NOTE | 2022-05-15 11:35 | NUR ---
PT LEFT FLOOR WITHOUT O2. PT REFUSED TO STAY IN ROOM. EDUCATED PT ON NEED TO STAY IN ROOM
[2022-05-16 04:36] LABS: HEMOGLOBIN 9.7 gm/dl (12.3-15.3)
[2022-05-16 04:40] LABS: RED BLOOD COUNT 2.8 M/UL (4.00-5.10)
[2022-05-16 04:59] LABS: BUN/CREATININE RATIO 11 (0-10)
[2022-05-17 03:08] LABS: HEMOGLOBIN 8.9 gm/dl (12.3-15.3); RED BLOOD COUNT 2.54 M/UL (4.00-5.10)
[2022-05-17 03:16] LABS: WHITE BLOOD COUNT 7.7 K/UL (4.5-11.0)
[2022-05-17 03:33] LABS: BUN/CREATININE RATIO 14 (0-10)
[2022-05-18 07:43] LABS: RED BLOOD COUNT 2.63 M/UL (4.00-5.10); WHITE BLOOD COUNT 6.2 K/UL (4.5-11.0)
[2022-05-18 09:06] LABS: BUN/CREATININE RATIO 21 (0-10)
[2022-05-19 03:26] LABS: HEMOGLOBIN 9.8 gm/dl (12.3-15.3); RED BLOOD COUNT 2.81 M/UL (4.00-5.10)
[2022-05-19 03:32] LABS: WHITE BLOOD COUNT 8.1 K/UL (4.5-11.0)
[2022-05-19 03:51] LABS: BUN/CREATININE RATIO 17 (0-10)
[2022-05-19] MEDS ORDERED: CHRONULAC20 GM/30 M PO (13:47)
[2022-05-19] MEDS ORDERED: BUMETANIDE2 MG PO (13:47)
[2022-05-19] MEDS ORDERED: XIFAXAN 550 MG550 MG PO (13:47)
== END 2022-05-19 16:12 | disposition home or self-care (01) | DRG 432 ==
LOC: ER1 12:59 → CDU 18:59 → PROG CARE 18:59 → M/S 05-14 12:39 → PROG CARE 05-14 12:39 → M/S 05-15 11:23
PROVIDERS: Emergency Medicine; Internal Medicine; ADMIT Internal Medicine
PROC: 0W9G3ZZ Drainage of Peritoneal Cavity, Percutaneous Approach (ICD-10-PCS; principal; 2022-05-12)
PROC: BW40ZZZ Ultrasonography of Abdomen (ICD-10-PCS; 2022-05-12)
DX: K70.31 Alcoholic cirrhosis of liver with ascites (principal); G92.8 Other toxic encephalopathy; K72.00 Acute and subacute hepatic failure without coma; Z20.822 Contact with and (suspected) exposure to COVID-19; J96.01 Acute respiratory failure with hypoxia; D61.818 Other pancytopenia; G40.909 Epilepsy, unspecified, not intractable, without status epilepticus; E11.9 Type 2 diabetes mellitus without complications; F17.210 Nicotine dependence, cigarettes, uncomplicated; R29.6 Repeated falls; F10.10 Alcohol abuse, uncomplicated; R13.10 Dysphagia, unspecified; W18.30XA Fall on same level, unspecified, initial encounter; Z79.4 Long term (current) use of insulin; Z90.49 Acquired absence of other specified parts of digestive tract; D64.9 Anemia, unspecified; Z90.710 Acquired absence of both cervix and uterus; Z88.8 Allergy status to other drugs, medicaments and biological substances; Z88.6 Allergy status to analgesic agent; Z88.1 Allergy status to other antibiotic agents; Z85.520 Personal history of malignant carcinoid tumor of kidney
CPT/HCPCS: 0240U; 36415; 36600; 70450; 70551; 71045; 71046; 76705; 80048; 80053; 80307; 81001; 82140; 82150; 82803; 82945; 82962; 83036; 83605; 83615; 83690; 83735; 83880; 83986; 84157; 85025; 85027; 85610; 87040; 87070; 87205; 89051; 92610; 93005; 94640; 94664; 94760; 96374; 96375; 97161; 97166; 99285; G0378; G0480; J1170; J1335; J1940; J2270; J2310; J2405; P9047

== ENCOUNTER 2022-05-25 22:27 | Emergency (ER) | payer OTHER ==
[~2022-05-25 22:27] MED LIST changes: +BUMETANIDE2 MG PO; +CHRONULAC20 GM/30 M PO; +IPRAT-ALBUT 0.5-3 ML INH; +NICOTINE PATCH1 EAC2 TD; +PROMETHAZINE12.5 M1 PO; +SENNOSIDES-DOC1 EACH PO; +XIFAXAN 550 MG550 MG PO
[2022-05-26 00:35] LABS: HEMOGLOBIN 9.1 gm/dl (12.3-15.3); RED BLOOD COUNT 2.58 M/UL (4.00-5.10); WHITE BLOOD COUNT 9.8 K/UL (4.5-11.0)
[2022-05-26 00:52] LABS: BUN/CREATININE RATIO 18 (0-10)
== END 2022-05-26 11:47 | disposition home or self-care (01) ==
LOC: ER1 22:27
PROVIDERS: Emergency Medicine; Physician Assistant
DX: G93.40 Encephalopathy, unspecified (principal); K74.60 Unspecified cirrhosis of liver; D69.6 Thrombocytopenia, unspecified; D64.9 Anemia, unspecified; E66.01 Morbid (severe) obesity due to excess calories
CPT/HCPCS: 36415; 70450; 80053; 80307; 81001; 82140; 82550; 82553; 83690; 84484; 84703; 85025; 93005; 96374; 99285; G0480; J2310

== ENCOUNTER 2022-06-26 22:48 | Emergency (ER) | payer OTHER ==
[2022-06-26 23:33] LABS: HEMOGLOBIN 9.9 gm/dl (12.3-15.3); RED BLOOD COUNT 2.89 M/UL (4.00-5.10); WHITE BLOOD COUNT 4.1 K/UL (4.5-11.0)
[2022-06-27 00:03] LABS: BUN/CREATININE RATIO 13 (0-10)
[2022-06-27] MEDS ORDERED: SPIRONOLACTONE100 MG PO (03:02)
[2022-06-27] MEDS ORDERED: KEPPRA750 MG PO (03:02)
[2022-06-27] MEDS ORDERED: BUMETANIDE1 MG PO (03:02)
[2022-06-27] MEDS ORDERED: LACTULOSE20 GM/30 M PO (03:02)
== END 2022-06-27 03:30 | disposition home or self-care (01) ==
LOC: ER1 22:48
PROVIDERS: Family Medicine
DX: G40.909 Epilepsy, unspecified, not intractable, without status epilepticus (principal); K74.60 Unspecified cirrhosis of liver; I10 Essential (primary) hypertension; Z91.14 Patient's other noncompliance with medication regimen; Z87.19 Personal history of other diseases of the digestive system; Z20.822 Contact with and (suspected) exposure to COVID-19
CPT/HCPCS: 36600; 51702; 71045; 80053; 80307; 81001; 82140; 82550; 82553; 82803; 84484; 85025; 93005; 99284; G0480; U0002

== ENCOUNTER 2022-06-30 12:02 | Emergency (ER) | payer OTHER ==
[~2022-06-30 12:02] MED LIST changes: +KEPPRA750 MG PO; +LACTULOSE20 GM/30 M PO; +SPIRONOLACTONE100 MG PO
== END 2022-06-30 15:11 | disposition left against medical advice (07) ==
LOC: ER1 12:02
DX: R18.8 Other ascites (principal); F17.290 Nicotine dependence, other tobacco product, uncomplicated; Z87.19 Personal history of other diseases of the digestive system; Z90.710 Acquired absence of both cervix and uterus; Z90.49 Acquired absence of other specified parts of digestive tract; Z88.5 Allergy status to narcotic agent; Z88.1 Allergy status to other antibiotic agents
CPT/HCPCS: 99283

== ENCOUNTER 2022-07-07 16:19 | Inpatient (IN) | payer OTHER ==
[~2022-07-07] VITALS: Ht 170.2 cm; Wt 112.4 kg
[~2022-07-07 16:19] MED LIST changes: -LEVOCARNITINE330 MG PO; -MIDODRINE HCL10 MG PO; -PROTONIX40 MG PO
[2022-07-07 17:29] LABS: HEMOGLOBIN 12.1 gm/dl (12.3-15.3); RED BLOOD COUNT 3.53 M/UL (4.00-5.10); WHITE BLOOD COUNT 9.7 K/UL (4.5-11.0)
[2022-07-07 17:47] LABS: BUN/CREATININE RATIO 12 (0-10)
[2022-07-07 22:01] LABS: BODY FLUID SOURCE PERITONEAL; MONONUCLEAR CELLS 92.6 (75-100); POLYMORPHONUCLEAR % 7.4 (0-25); RBC (AUTOMATED) 1500 (0-100000); WBC (AUTOMATED) 540 (0-500)
[2022-07-07 22:02] LABS: LDH, BODY FLUID 36 U/L
[2022-07-08 04:20] LABS: HEMOGLOBIN 10.5 gm/dl (12.3-15.3); WHITE BLOOD COUNT 8.6 K/UL (4.5-11.0)
[2022-07-08 04:21] LABS: RED BLOOD COUNT 3.17 M/UL (4.00-5.10)
[2022-07-08 04:36] LABS: BUN/CREATININE RATIO 10 (0-10)
[2022-07-08] MEDS ORDERED: BUMETANIDE2 MG PO (14:09)
[2022-07-09 05:14] LABS: HEMOGLOBIN 10.4 gm/dl (12.3-15.3); RED BLOOD COUNT 3.02 M/UL (4.00-5.10); WHITE BLOOD COUNT 7.7 K/UL (4.5-11.0)
[2022-07-09 05:54] LABS: BUN/CREATININE RATIO 12 (0-10)
--- NOTE | 2022-07-09 08:40 | NUR ---
SEDATION STOPPED AT 0800 PER MD ORDER FOR SEDATION VACATION/TO ASSESS MENTAL STATUS.
[2022-07-09] MEDS ORDERED: LACTULOSE10 GM/15 M PO (14:13)
[2022-07-09] MEDS ORDERED: MIDODRINE HCL10 MG PO (16:22)
[2022-07-09] MEDS ORDERED: LEVOCARNITINE330 MG PO (16:35)
[2022-07-09] MEDS ORDERED: PROTONIX40 MG PO (17:57)
[2022-07-10 04:38] LABS: HEMOGLOBIN 9.5 gm/dl (12.3-15.3); RED BLOOD COUNT 2.76 M/UL (4.00-5.10); WHITE BLOOD COUNT 6.8 K/UL (4.5-11.0)
[2022-07-10 05:08] LABS: BUN/CREATININE RATIO 15 (0-10)
[2022-07-11 04:48] LABS: HEMOGLOBIN 9.7 gm/dl (12.3-15.3); RED BLOOD COUNT 2.82 M/UL (4.00-5.10); WHITE BLOOD COUNT 6.3 K/UL (4.5-11.0)
[2022-07-11 06:47] LABS: BUN/CREATININE RATIO 21 (0-10)
[2022-07-12 04:53] LABS: HEMOGLOBIN 9.8 gm/dl (12.3-15.3); RED BLOOD COUNT 2.9 M/UL (4.00-5.10); WHITE BLOOD COUNT 6.8 K/UL (4.5-11.0)
[2022-07-12 05:07] LABS: BUN/CREATININE RATIO 23 (0-10)
[2022-07-13 05:15] LABS: HEMOGLOBIN 8.7 gm/dl (12.3-15.3); RED BLOOD COUNT 2.55 M/UL (4.00-5.10); WHITE BLOOD COUNT 7.9 K/UL (4.5-11.0)
[2022-07-13 05:32] LABS: BUN/CREATININE RATIO 24 (0-10)
[2022-07-14 08:48] LABS: HEMOGLOBIN 9.6 gm/dl (12.3-15.3); WHITE BLOOD COUNT 6.6 K/UL (4.5-11.0)
[2022-07-14 08:49] LABS: RED BLOOD COUNT 2.86 M/UL (4.00-5.10)
[2022-07-14 09:05] LABS: BUN/CREATININE RATIO 28 (0-10)
[2022-07-14 11:51] LABS: BODY FLUID SOURCE ASCITES; MONONUCLEAR CELLS 73.9 %; POLYMORPHONUCLEAR 26.1 %; RBC (AUTOMATED) 100 10^6; WBC (AUTOMATED) 46 10^3
[2022-07-15 06:00] LABS: BUN/CREATININE RATIO 26 (0-10)
[2022-07-17 06:03] LABS: RED BLOOD COUNT 2.6 M/UL (4.00-5.10); WHITE BLOOD COUNT 5.5 K/UL (4.5-11.0)
[2022-07-17 06:27] LABS: BUN/CREATININE RATIO 20 (0-10)
[2022-07-18 04:18] LABS: HEMOGLOBIN 9.2 gm/dl (12.3-15.3); RED BLOOD COUNT 2.69 M/UL (4.00-5.10)
[2022-07-18 04:22] LABS: WHITE BLOOD COUNT 4.1 K/UL (4.5-11.0)
[2022-07-18 07:36] LABS: BUN/CREATININE RATIO 15 (0-10)
[2022-07-19 05:05] LABS: WHITE BLOOD COUNT 3.3 K/UL (4.5-11.0)
[2022-07-19 05:21] LABS: RED BLOOD COUNT 2.27 M/UL (4.00-5.10)
[2022-07-19 05:36] LABS: BUN/CREATININE RATIO 14 (0-10)
[2022-07-20 04:54] LABS: HEMOGLOBIN 7.5 gm/dl (12.3-15.3); RED BLOOD COUNT 2.2 M/UL (4.00-5.10)
[2022-07-20 05:07] LABS: BUN/CREATININE RATIO 16 (0-10)
[2022-07-21 09:08] LABS: HEMOGLOBIN 9.1 gm/dl (12.3-15.3); WHITE BLOOD COUNT 3.4 K/UL (4.5-11.0)
[2022-07-21 09:15] LABS: RED BLOOD COUNT 2.63 M/UL (4.00-5.10)
[2022-07-21 10:49] LABS: BUN/CREATININE RATIO 17 (0-10)
[2022-07-21 13:16] LABS: BODY FLUID SOURCE ASCITES; MONONUCLEAR CELLS 68.1 (75-100); POLYMORPHONUCLEAR % 31.9 (0-25); RBC (AUTOMATED) 200 (0-100000); WBC (AUTOMATED) 204 (0-500)
[2022-07-21] MEDS ORDERED: PROTONIX 40 MG40 M1 PO (13:52)
[2022-07-21] MEDS ORDERED: FUROSEMIDE20 MG PO (13:52)
[2022-07-21] MEDS ORDERED: ALDACTONE 25MG25 MG PO (13:52)
[2022-07-21 14:02] LABS: TOTAL PROTEIN, BODY FLUID 1.4 gm/dL
[2022-07-21] MEDS ORDERED: ZOFRAN 4 MG TAB4 MG PO (14:02)
[2022-07-21] MEDS ORDERED: ROXICODONE TAB 55 MG PO (14:37)
--- NOTE | 2022-07-21 15:27 | NUR ---
PT OXYGEN SATURATION ON ROOM AIR WAS 86% WHILE PATIENT WAS ASLEEP.
== END 2022-07-21 16:55 | disposition home or self-care (01) | DRG 870 ==
LOC: ER1 16:19 → CDU 19:11 → CCU 19:11 → PROG CARE 19:11 → CCU 20:44 → PROG CARE 07-20 07:45
PROVIDERS: Internal Medicine; Internal Medicine Pulmonary Disease; Student in an Organized Health Care Education/Training Program; ADMIT Internal Medicine Infectious Disease
PROC: 5A1955Z Respiratory Ventilation, Greater than 96 Consecutive Hours (ICD-10-PCS; principal; 2022-07-07)
PROC: 3E043XZ Introduction of Vasopressor into Central Vein, Percutaneous Approach (ICD-10-PCS; 2022-07-07)
PROC: 0W9G3ZZ Drainage of Peritoneal Cavity, Percutaneous Approach (ICD-10-PCS; 2022-07-07)
PROC: BW40ZZZ Ultrasonography of Abdomen (ICD-10-PCS; 2022-07-07)
PROC: 3E03329 Introduction of Other Anti-infective into Peripheral Vein, Percutaneous Approach (ICD-10-PCS; 2022-07-07)
PROC: 0BH17EZ Insertion of Endotracheal Airway into Trachea, Via Natural or Artificial Opening (ICD-10-PCS; 2022-07-07)
PROC: B24BZZZ Ultrasonography of Heart with Aorta (ICD-10-PCS; 2022-07-12)
PROC: 05HN33Z Insertion of Infusion Device into Left Internal Jugular Vein, Percutaneous Approach (ICD-10-PCS; 2022-07-13)
PROC: B544ZZA Ultrasonography of Left Jugular Veins, Guidance (ICD-10-PCS; 2022-07-13)
PROC: 0W9G3ZZ Drainage of Peritoneal Cavity, Percutaneous Approach (ICD-10-PCS; 2022-07-14)
PROC: BW40ZZZ Ultrasonography of Abdomen (ICD-10-PCS; 2022-07-14)
PROC: 5A0935A Assistance with Respiratory Ventilation, Less than 24 Consecutive Hours, High Flow/Velocity Cannula (ICD-10-PCS; 2022-07-16)
DX: A41.9 Sepsis, unspecified organism (principal); G93.41 Metabolic encephalopathy; J18.9 Pneumonia, unspecified organism; Z66 Do not resuscitate; J96.21 Acute and chronic respiratory failure with hypoxia; K72.00 Acute and subacute hepatic failure without coma; R65.21 Severe sepsis with septic shock; R57.0 Cardiogenic shock; C64.9 Malignant neoplasm of unspecified kidney, except renal pelvis; K76.6 Portal hypertension; Z99.11 Dependence on respirator [ventilator] status; E72.20 Disorder of urea cycle metabolism, unspecified; F10.10 Alcohol abuse, uncomplicated; F19.10 Other psychoactive substance abuse, uncomplicated; D69.6 Thrombocytopenia, unspecified; D64.9 Anemia, unspecified; F10.129 Alcohol abuse with intoxication, unspecified; K70.31 Alcoholic cirrhosis of liver with ascites; I08.1 Rheumatic disorders of both mitral and tricuspid valves; L89.222 Pressure ulcer of left hip, stage 2; K72.10 Chronic hepatic failure without coma; G40.909 Epilepsy, unspecified, not intractable, without status epilepticus; R53.81 Other malaise; E11.9 Type 2 diabetes mellitus without complications; Z90.49 Acquired absence of other specified parts of digestive tract; Z90.710 Acquired absence of both cervix and uterus; Z88.8 Allergy status to other drugs, medicaments and biological substances; Z88.6 Allergy status to analgesic agent
CPT/HCPCS: ECHO; 31500; 36415; 36600; 70450; 71045; 74018; 80048; 80053; 80307; 81001; 82140; 82533; 82550; 82553; 82803; 83605; 83615; 83735; 83880; 83986; 84100; 84132; 84157; 84484; 85025; 85027; 85384; 85610; 85730; 86140; 87040; 87070; 87081; 87205; 89051; 92610; 93005; 93306; 94002; 94003; 94640; 94664; 94760; 96374; 97110-GP-CQ; 97116-GP-CQ; 97163; 99285; A6212; C1729; C9113; G0480; J0610; J0692; J1170; J1335; J1650; J1940; J2250; J2310; J2405; J2704; J3411; J3475; J3480; J7030; J7050; J7070; P9047